=== PATIENT | male | born 1995 | race Hispanic/Latino ===

== ENCOUNTER → 2022-10-04 | Outpatient (REF) | payer OTHER | LOC: M LAB REF 14:40 | PROVIDERS: ATTEND Internal Medicine Gastroenterology | DX: R19.4 Change in bowel habit (principal) ==

== ENCOUNTER → 2022-10-06 | Outpatient (CLI) | payer OTHER | LOC: M PLARAD 13:14 → EDUNIT# 13:45 | PROVIDERS: ATTEND Physician Assistant | DX: R51.9 Headache, unspecified (principal) ==

== ENCOUNTER 2022-11-25 09:15 | Emergency (ER) | payer OTHER ==
[~2022-11-25] VITALS: Ht 188 cm; Wt 95.9 kg
[2022-11-25] MEDS ORDERED: SUMA100T2 PO (09:44)
[2022-11-25] MEDS ORDERED: DICL50TA2 PO (09:44)
[2022-11-25] MEDS ORDERED: TRAZ-257 PO (09:44)
[2022-11-25] MEDS ORDERED: PRAZ1CAP PO (09:44)
[2022-11-25] MEDS ORDERED: TOPI-254 PO (09:44)
[2022-11-25] MEDS ORDERED: SERT-141 PO (09:44)
[2022-11-25] MEDS ORDERED: NS 1,000 ML IV ONE (11:45)
[2022-11-25 12:09] LABS: LIPASE 43 U/L (12-53)
[2022-11-25 12:10] LABS: ALBUMIN 4.1 G/DL (3.2-5.2); ALKALINE PHOSPHATASE 89 U/L (46-116); ALT/SGPT 89 U/L (7.0-40); AST/SGOT 36 U/L (<34); BILIRUBIN,TOTAL 0.5 MG/DL (0.3-1.2); BLOOD UREA NITROGEN 11 MG/DL (9-23); CALCIUM LEVEL 9.6 MG/DL (8.5-10.1); CARBON DIOXIDE LEVEL 31 MMOL/L (20-31); CHLORIDE LEVEL 103 MMOL/L (98-107); CREATININE FOR GFR 0.95 MG/DL (0.70-1.30); GLOMERULAR FILTRATION RATE > 60.0 (>60); GLUCOSE, FASTING 86 MG/DL (60-100); POTASSIUM SERUM 4.3 MMOL/L (3.5-5.1); SODIUM LEVEL 140 MMOL/L (136-145)
[2022-11-25 12:11] LABS: ALBUMIN 3.9 G/DL (3.2-5.2); ALKALINE PHOSPHATASE 87 U/L (46-116); ALT/SGPT 85 U/L (7.0-40); AST/SGOT 37 U/L (<34); BILIRUBIN,DIRECT 0.2 MG/DL (<0.4); BILIRUBIN,TOTAL 0.5 MG/DL (0.3-1.2); CK-MB VALUE MASS < 1.0 NG/ML (<3.6)
[2022-11-25 12:12] LABS: CPK CREATINE PHOSPHOKINASE 120 U/L (46-171); MB/CK RELATIVE INDEX 0.83 (< OR =4)
[2022-11-25] MEDS: GASTROGRAFIN SOLUTION 30ML PO SCH ×2 (12:20→12:34)
[2022-11-25] MEDS ORDERED: ISOVUE-370 76% 100ML VIAL As Ordered ONE (13:38)
[2022-11-25 15:07] LABS: BASO % 0.8 % (0.0-1.0); EOS % 0.8 % (0.0-3.0); HEMATOCRIT 44.2 % (42.0-52.0); HEMOGLOBIN 15.3 g/dl (13.5-17.5); LYMPH # 1.5 10^3/uL (1.5-5.0); LYMPH % 29.2 % (24.0-44.0); MEAN CORPUSCULAR HEMOGLOBIN 29.9 pg (27.0-33.0); MEAN CORPUSCULAR HGB CONC 34.6 g/dl (32.0-36.5); MEAN CORPUSCULAR VOLUME 86.5 fl (80.0-96.0); MONO # 0.5 10^3/uL (0.0-0.8); MONO % 9.5 % (2.0-8.0); NEUTROPHILS # 3.1 10^3/uL (1.5-8.5); NEUTROPHILS % 59.5 % (36.0-66.0); PLATELET COUNT, AUTOMATED 238 10^3/uL (150-450); RED BLOOD COUNT 5.11 10^6/uL (4.30-6.10); WHITE BLOOD COUNT 5.3 10^3/uL (4.0-10.0)
[2022-11-25] MEDS ORDERED: DICY-61 PO (15:09)
[2022-11-25] MEDS ORDERED: MIRA3350 PO (15:09)
[2022-11-25 15:14] LABS: ERYTHROCYTE SEDIMENTATION RATE 18 mm/hr (0-15)
[2022-11-25 15:36] VITALS: BP 138/78; TEMP 97.4; O2SAT 99
== END 2022-11-25 15:41 | disposition home or self-care (01) ==
LOC: M ED 09:15
DX: R10.84 Generalized abdominal pain (principal); F41.9 Anxiety disorder, unspecified; F32.A Depression, unspecified; Z79.83 Long term (current) use of bisphosphonates; Z79.899 Other long term (current) drug therapy
CPT/HCPCS: 36415; 71045; 74177; 80047; 80053; 80076; 82550; 82553; 83690; 84484; 85025; 85652; 86140; 93005; 99284; Q9963; Q9967

== ENCOUNTER 2022-12-12 12:58 | Inpatient (IN) | payer OTHER ==
[~2022-12-12] VITALS: Ht 188 cm; Wt 94.1 kg
[~2022-12-12 12:58] MED LIST: DICL50TA2 PO; DICY-61 PO; MIRA3350 PO; PRAZ1CAP PO; SERT-141 PO; SUMA100T2 PO; TOPI-254 PO; TRAZ-257 PO
[2022-12-12 13:48] LABS: HEMATOCRIT 44.2 % (42.0-52.0); HEMOGLOBIN 15.2 g/dl (13.5-17.5); MEAN CORPUSCULAR HEMOGLOBIN 29.4 pg (27.0-33.0); MEAN CORPUSCULAR HGB CONC 34.4 g/dl (32.0-36.5); MEAN CORPUSCULAR VOLUME 85.5 fl (80.0-96.0); PLATELET COUNT, AUTOMATED 221 10^3/uL (150-450); RED BLOOD COUNT 5.17 10^6/uL (4.30-6.10); WHITE BLOOD COUNT 6.5 10^3/uL (4.0-10.0)
[2022-12-12] MEDS ORDERED: NIFEdipine 10 MG CAP PO ONE (14:00)
[2022-12-12 14:18] LABS: AMPHETAMINES LEVEL URINE NEGATIVE (NEGATIVE); BARBITURATES URINE NEGATIVE (NEGATIVE); BENZODIAZEPINES URINE NEGATIVE (NEGATIVE); CANNABINOIDS URINE NEGATIVE (NEGATIVE); COCAINE METABOLITE URINE NEGATIVE (NEGATIVE); METHADONE URINE NEGATIVE (NEGATIVE); OPIATES URINE NEGATIVE (NEGATIVE); PHENCYCLIDINE URINE NEGATIVE (NEGATIVE)
[2022-12-12 14:20] LABS: ETHYL ALCOHOL (ETHANOL) < 0.003 % (0.000-0.010)
[2022-12-12 14:22] LABS: ACETAMINOPHEN LEVEL < 2.0 UG/ML (10.0-20.0); ALBUMIN 3.9 G/DL (3.2-5.2); ALKALINE PHOSPHATASE 103 U/L (46-116); ALT/SGPT 171 U/L (7.0-40); AST/SGOT 52 U/L (<34); BILIRUBIN,DIRECT 0.2 MG/DL (<0.4); BILIRUBIN,TOTAL 0.4 MG/DL (0.3-1.2); BLOOD UREA NITROGEN 13 MG/DL (9-23); CALCIUM LEVEL 9.5 MG/DL (8.5-10.1); CARBON DIOXIDE LEVEL 31 MMOL/L (20-31); CHLORIDE LEVEL 102 MMOL/L (98-107); CREATININE FOR GFR 0.87 MG/DL (0.70-1.30); GLOMERULAR FILTRATION RATE > 60.0 (>60); GLUCOSE, FASTING 94 MG/DL (60-100); SALICYLATE LEVEL < 3.0 MG/DL (<30); SODIUM LEVEL 138 MMOL/L (136-145); TOTAL PROTEIN 7.8 G/DL (5.7-8.2)
[2022-12-12 14:24] LABS: THYROID STIMULATING HORMONE 1.776 uIU/ML (0.55-4.78)
[2022-12-12 14:48] VITALS: BP 184/98
[2022-12-12] MEDS ORDERED: GABA-1171 PO (17:35)
[2022-12-12] MEDS ORDERED: METH4PACK PO (17:35)
[2022-12-12] MEDS ORDERED: METH-1164 PO (17:35)
[2022-12-12] MEDS ORDERED: SUMA50TA2 PO (17:35)
[2022-12-12] MEDS ORDERED: TRAZ-252 PO (17:35)
[2022-12-12] MEDS ORDERED: IBUP80TA PO (17:35)
[2022-12-12] MEDS ORDERED: ZOLO100T PO (17:43)
[2022-12-12] MEDS ORDERED: MED REC IN PROGRESS XX SCH (17:45)
[2022-12-12] MEDS ORDERED: traZODone 100 MG TAB PO PRN (18:05)
[2022-12-12] MEDS ORDERED: ACETAMINOPHEN TAB 650MG DOSE (2X325MG) PO PRN (18:05)
[2022-12-12] MEDS ORDERED: MOM 30ML SUSPENSION UDC PO PRN (18:05)
[2022-12-12] MEDS ORDERED: IBUPROFEN 400MG TAB PO PRN (18:05)
[2022-12-12] MEDS ORDERED: diphenhydrAMINE 25MG CAP PO PRN (18:05)
[2022-12-12] MEDS ORDERED: NICOTINE 21MG/24HR 1 EA TRANSDERMAL TD PRN (18:05)
[2022-12-12] MEDS ORDERED: MAALOX 30 ML SUSP *UDC PO PRN (18:05)
[2022-12-12] MEDS ORDERED: HOME MED LIST COMPLETE! XX SCH (18:10)
[2022-12-12 19:31] LABS: HEMATOCRIT 45.2 % (42.0-52.0); HEMOGLOBIN 15.4 g/dl (13.5-17.5); MEAN CORPUSCULAR HEMOGLOBIN 29.4 pg (27.0-33.0); MEAN CORPUSCULAR HGB CONC 34.1 g/dl (32.0-36.5); MEAN CORPUSCULAR VOLUME 86.3 fl (80.0-96.0); PLATELET COUNT, AUTOMATED 209 10^3/uL (150-450); RED BLOOD COUNT 5.24 10^6/uL (4.30-6.10); WHITE BLOOD COUNT 6.1 10^3/uL (4.0-10.0)
[2022-12-12 19:48] LABS: ETHYL ALCOHOL (ETHANOL) < 0.003 % (0.000-0.010)
[2022-12-12 19:49] LABS: ACETAMINOPHEN LEVEL < 2.0 UG/ML (10.0-20.0)
[2022-12-12 19:50] LABS: ALBUMIN 3.8 G/DL (3.2-5.2); ALKALINE PHOSPHATASE 102 U/L (46-116); ALT/SGPT 169 U/L (7.0-40); AST/SGOT 53 U/L (<34); BILIRUBIN,DIRECT 0.2 MG/DL (<0.4); BILIRUBIN,TOTAL 0.5 MG/DL (0.3-1.2); BLOOD UREA NITROGEN 11 MG/DL (9-23); CALCIUM LEVEL 9.8 MG/DL (8.5-10.1); CARBON DIOXIDE LEVEL 30 MMOL/L (20-31); CHLORIDE LEVEL 102 MMOL/L (98-107); CREATININE FOR GFR 0.87 MG/DL (0.70-1.30); GLOMERULAR FILTRATION RATE > 60.0 (>60); GLUCOSE, FASTING 139 MG/DL (60-100); POTASSIUM SERUM 4.2 MMOL/L (3.5-5.1); SALICYLATE LEVEL < 3.0 MG/DL (<30); SODIUM LEVEL 140 MMOL/L (136-145); TOTAL PROTEIN 7.6 G/DL (5.7-8.2)
[2022-12-12 19:52] LABS: THYROID STIMULATING HORMONE 1.042 uIU/ML (0.55-4.78)
[2022-12-12] MEDS: traZODone 50 MG TAB PO PRN (21:29)
[2022-12-12 21:35] VITALS: BP 135/71; O2SAT 97
[2022-12-13 06:22] VITALS: BP 93/55; TEMP 98; O2SAT 96
[2022-12-13] MEDS: SERTRALINE 100 MG TAB PO SCH (08:20)
[2022-12-13 12:26] VITALS: BP 163/80; O2SAT 100
[2022-12-13 14:36] LABS: HEPATITIS C VIRUS ABY INDEX 0.26 INDEX (<0.8)
[2022-12-13 14:37] LABS: HEPATITIS B CORE ANTIBODY IGM NEGATIVE (NEGATIVE)
[2022-12-13] MEDS ORDERED: LORazepam 0.5 MG TAB PO STA (14:46)
[2022-12-13] MEDS: busPIRone 5 MG TAB PO SCH ×2 (14:56→21:47)
[2022-12-13 16:38] VITALS: BP 138/74; TEMP 97; O2SAT 99
[2022-12-13] MEDS: traZODone 50 MG TAB PO PRN (21:47)
[2022-12-14 06:23] VITALS: BP 132/76; TEMP 98; O2SAT 97
[2022-12-14] MEDS ORDERED: BUSP5TA PO (06:25)
[2022-12-14] MEDS: SERTRALINE 100 MG TAB PO SCH (08:22)
[2022-12-14] MEDS: busPIRone 5 MG TAB PO SCH (08:25)
== END 2022-12-14 09:50 | disposition home or self-care (01) | DRG 881 ==
LOC: EDBD 12:58 → M ED 12:58 → M ED INP 18:05 → M PSY 20:40
PROVIDERS: ADMIT Psychiatry & Neurology Psychiatry; ATTEND Student in an Organized Health Care Education/Training Program
DX: F32.9 Major depressive disorder, single episode, unspecified (principal); R45.851 Suicidal ideations; F43.10 Post-traumatic stress disorder, unspecified; F41.1 Generalized anxiety disorder; M54.9 Dorsalgia, unspecified; G89.29 Other chronic pain; G62.9 Polyneuropathy, unspecified; G43.909 Migraine, unspecified, not intractable, without status migrainosus; M25.561 Pain in right knee; R74.01 Elevation of levels of liver transaminase levels; Z79.899 Other long term (current) drug therapy; Z20.822 Contact with and (suspected) exposure to COVID-19; Z91.82 Personal history of military deployment

== ENCOUNTER 2023-01-02 11:08 | Day surgery (SDC) | payer OTHER ==
[~2023-01-02] VITALS: Ht 188 cm; Wt 96.0 kg
[~2023-01-02 11:08] MED LIST changes: +BUSP10TA PO; +BUSP5TA PO; +GABA-1171 PO; +IBUP80TA PO; +METH-1164 PO; +METH4PACK PO; +NS 1,000 ML IV ONE; +SUMA50TA2 PO; +TRAZ-252 PO; +TRAZ150T90 PO; +ZOLO100T PO
[2023-01-02] MEDS ORDERED: ESCI5SOL3 PO (11:50)
[2023-01-02] MEDS ORDERED: FREM225A SQ (11:50)
[2023-01-02] MEDS ORDERED: SUMA100T2 PO (11:50)
[2023-01-02] MEDS ORDERED: RAME8TAB2 PO (11:50)
[2023-01-02] MEDS ORDERED: propofoL 200 MG/20 ML VIAL As Ordered ONE (12:32)
[2023-01-02] MEDS ORDERED: LIDOCAINE 2% 100MG/5ML SDV (FOR ANES.) As Ordered ONE (12:32)
[2023-01-02 12:45] VITALS: TEMP 97.9
[2023-01-02 13:00] VITALS: BP 143/83; O2SAT 100
== END 2023-01-02 13:20 | disposition home or self-care (01) ==
LOC: M OPP 11:08 → EDUNIT# 13:30
PROVIDERS: ATTEND Internal Medicine Gastroenterology
DX: K63.5 Polyp of colon (principal); K64.0 First degree hemorrhoids; G47.33 Obstructive sleep apnea (adult) (pediatric); I20.9 Angina pectoris, unspecified; Z79.899 Other long term (current) drug therapy

== ENCOUNTER → 2023-07-05 | Outpatient (REF) | payer OTHER ==
[~2023-07-05] MED LIST changes: +ESCI5SOL3 PO; +FREM225A SQ; -NS 1,000 ML IV ONE; +RAME8TAB2 PO; +TOPI-21 PO; -TOPI-254 PO
[2023-07-05 13:21] LABS: APPEARANCE, URINE CLEAR (CLEAR); BACTERIA, URINE AUTO NEGATIVE (NEGATIVE); BILIRUBIN, URINE AUTO NEGATIVE (NEGATIVE); BLOOD, URINE BLOOD NEGATIVE (NEGATIVE); COLOR, URINE YELLOW (YELLOW); GLUCOSE, URINE (UA) AUTO NEGATIVE (NEGATIVE); KETONE, URINE AUTO NEGATIVE (NEGATIVE); LEUKOCYTE ESTERASE, URINE AUTO NEGATIVE (NEGATIVE); MUCUS, URINE SMALL (NEGATIVE); NITRITE, URINE AUTO NEGATIVE (NEGATIVE); PROTEIN, URINE AUTO NEGATIVE (NEGATIVE); RBC, URINE AUTO 0 /HPF (0-3); SPECIFIC GRAVITY URINE AUTO 1.011 (1.002-1.035); SQUAMOUS EPITHELIAL CELL UR AU 0 /HPF (0-6); UROBILINOGEN, URINE AUTO 0.2 mg/dL (0.0-2.0); WBC, URINE AUTO 0 /HPF (0-3)
[2023-07-05 13:53] LABS: CREATININE,RANDOM URINE 92.6 MG/DL
[2023-07-05 13:55] LABS: TOTAL PROTEIN,RANDOM URINE < 6.0 MG/DL (0.0-14.0)
[2023-07-05 14:01] LABS: BASO # 0.1 10^3/uL (0.0-0.2); BASO % 0.9 % (0.0-1.0); EOS % 0.7 % (0.0-3.0); HEMATOCRIT 49.3 % (42.0-52.0); HEMOGLOBIN 17.3 g/dl (13.5-17.5); LYMPH # 1.8 10^3/uL (1.5-5.0); LYMPH % 32.7 % (24.0-44.0); MEAN CORPUSCULAR HEMOGLOBIN 29.6 pg (27.0-33.0); MEAN CORPUSCULAR HGB CONC 35.1 g/dl (32.0-36.5); MEAN CORPUSCULAR VOLUME 84.4 fl (80.0-96.0); MONO # 0.6 10^3/uL (0.0-0.8); MONO % 10.9 % (2.0-8.0); NEUTROPHILS % 54.6 % (36.0-66.0); PLATELET COUNT, AUTOMATED 226 10^3/uL (150-450); RED BLOOD COUNT 5.84 10^6/uL (4.30-6.10); WHITE BLOOD COUNT 5.5 10^3/uL (4.0-10.0)
[2023-07-05 14:24] LABS: ERYTHROCYTE SEDIMENTATION RATE 23 mm/hr (0-15)
[2023-07-05 14:34] LABS: C REACTIVE PROTEIN QUANTITATIV < 0.40 MG/DL (<1.0)
[2023-07-05 14:35] LABS: CPK CREATINE PHOSPHOKINASE 122 U/L (46-171); LDH LACTATE DEHYDROGENASE 170 U/L (120-246)
[2023-07-05 14:36] LABS: ALBUMIN 4.4 G/DL (3.2-5.2); ALKALINE PHOSPHATASE 96 U/L (46-116); ALT/SGPT 95 U/L (7.0-40); AST/SGOT 38 U/L (<34); BILIRUBIN,TOTAL 0.7 MG/DL (0.3-1.2); BLOOD UREA NITROGEN 12 MG/DL (9-23); CALCIUM LEVEL 9.7 MG/DL (8.5-10.1); CARBON DIOXIDE LEVEL 28 MMOL/L (20-31); CHLORIDE LEVEL 104 MMOL/L (98-107); CREATININE FOR GFR 0.92 MG/DL (0.70-1.30); GLOMERULAR FILTRATION RATE > 60.0 (>60); GLUCOSE, FASTING 87 MG/DL (60-100); POTASSIUM SERUM 4.2 MMOL/L (3.5-5.1); SODIUM LEVEL 137 MMOL/L (136-145); TOTAL PROTEIN 7.8 G/DL (5.7-8.2)
[2023-07-05 15:10] LABS: HEPATITIS C VIRUS ABY INDEX 0.13 INDEX (<0.8)
[2023-07-05 15:11] LABS: HEPATITIS B CORE ANTIBODY IGM NEGATIVE (NEGATIVE)
[2023-07-06 13:33] LABS: COMPLEMENT C3 129.5 MG/DL (82.0-160.0); COMPLEMENT C4 31.9 MG/DL (12-36)
== END ==
LOC: M SFHCRHEU 09:08
PROVIDERS: ATTEND Internal Medicine Rheumatology
DX: R76.8 Other specified abnormal immunological findings in serum (principal); M25.50 Pain in unspecified joint; K13.79 Other lesions of oral mucosa; R21 Rash and other nonspecific skin eruption; M35.00 Sjogren syndrome, unspecified; R53.83 Other fatigue